=== PATIENT | female | born 1955 | race Caucasian/White ===

== ENCOUNTER 2018-10-01 15:57 | Emergency (ER) | payer BC ==
[~2018-10-01] VITALS: Ht 162.6 cm; Wt 83.9 kg
[2018-10-01] MEDS ORDERED: SYNTHROID50 MCG PO (16:34)
[2018-10-01] MEDS ORDERED: PROLIA60 MG/1 ML SUBQ (16:35)
[2018-10-01] MEDS ORDERED: FOLIC ACID1 MG PO (16:35)
[2018-10-01] MEDS ORDERED: METHOTREXATE 22.5 MG PO (16:35)
[2018-10-01] MEDS ORDERED: BENADRYL25 MG PO (16:36)
[2018-10-01] MEDS ORDERED: IBUPROFEN 600600 M1 PO (16:36)
[2018-10-01 16:37] LABS: URINE BILIRUBIN NEGATIVE (Negative); URINE BLOOD TRACE (Negative); URINE CLARITY CLEAR; URINE COLOR YELLOW; URINE GLUCOSE-RANDOM* NEGATIVE (Negative); URINE KETONES NEGATIVE (Negative); URINE LEUKOCYTES-REFLEX TRACE (Negative); URINE NITRITE-REFLEX NEGATIVE (Negative); URINE PROTEIN (DIPSTICK) NEGATIVE (Negative); URINE SPECIFIC GRAVITY 1.015 (1.005-1.035); URINE UROBILINOGEN 0.2 E.U./dl (0.2-1.0)
[2018-10-01] MEDS ORDERED: CALCIUM 600 +1 EAC1 PO (16:37)
[2018-10-01 17:27] LABS: ABSOLUTE NEUTROPHILS 12.4 thou/uL (1.4-8.2); BASOPHILS 0.6 % (0.0-2.0); EOSINOPHILS 0.9 % (0.0-3.0); HEMATOCRIT 42.7 % (37.0-47.0); HEMOGLOBIN 14.3 gm/dL (12.0-15.0); LYMPHOCYTES 10.1 % (24.0-44.0); MCH 30.2 pg (26.0-34.0); MCHC 33.4 g/dL (28.0-37.0); MCV 90.4 fL (80.0-100.0); MONOCYTES 3.6 % (1.0-8.0); PLATELET COUNT 226 thou/uL (150-400); POLYS 84.8 % (36.0-66.0); RBC 4.73 mil/uL (4.20-5.00); RDW 14.3 % (10.5-14.5); WBC 14.7 thou/uL (4.0-11.0)
[2018-10-01 17:34] LABS: CALCIUM 9.7 mg/dL (8.5-10.1); CREATININE 0.8 mg/dL (0.6-1.0); POTASSIUM 3.6 mmol/L (3.5-5.1)
[2018-10-01 17:38] LABS: ALBUMIN 4.1 g/dL (3.4-5.0); TOTAL BILIRUBIN 0.9 mg/dL (<0.1-1.0); TOTAL PROTEIN 8.1 g/dL (6.4-8.2)
[2018-10-01] MEDS ORDERED: SENNA-DOCUSATE1 EAC1 PO (18:25)
[2018-10-01] MEDS ORDERED: FLAGYL500 M1 PO (18:25)
[2018-10-01] MEDS ORDERED: CIPROFLOXACIN500 M1 PO (18:25)
[2018-10-01] MEDS ORDERED: NORCO 5-325 TA1 EACH PO (18:25)
[2018-10-01] MEDS ORDERED: ZOFRAN ODT4 MG PO (18:25)
[2018-10-01 19:19] VITALS: BP 138/81
== END 2018-10-01 19:38 | disposition home or self-care (01) ==
LOC: ER 15:57
PROVIDERS: Emergency Medicine
DX: K57.32 Diverticulitis of large intestine without perforation or abscess without bleeding (principal); M06.9 Rheumatoid arthritis, unspecified; Z87.891 Personal history of nicotine dependence